=== PATIENT | female | born 1975 | race African-American/Black ===

== ENCOUNTER 2016-10-15 18:04 | Emergency (ER) | payer OTHER ==
[~2016-10-15] VITALS: Ht 162.6 cm; Wt 100.7 kg
--- NOTE | ~2016-10-15 | CR126 ---
[facility] A Service of [facility] & [facility] RADIOLOGY TEXT RESULTS PATIENT: RADHAMES ESPINOSA LOCATION: SED : 71 UNIT #: [id number] AGE: [address]: Eloisa Banks APRN SEX: F ORDER DR: [id number] [address] [address] [id number] E MR#: [id number] Acc #: [id number] NAME: RADHAMES ESPINOSA : 1975 SEX: F STUDY DATE/TIME: 10/15/2016 18:24 UNIT: SED ROOM: STUDY DESCRIPTION: CR Foot Complete Min 3 View Lt Attending Physician: Eloisa Banks A.P.R.N. Ordering Physician: Eloisa Carson A.P.R.N. Primary Care Physician: Primary Care Physician No MEDICAL IMAGING REPORT This report is preliminary unless electronic signature is present. EXAM Left foot 3 views 10/15/2016 HISTORY Left foot pain, rolled left foot and ankle today on sidewalk. FINDINGS Three views of the left foot demonstrate no fracture. There is hallux valgus and metatarsus varus. Mild degenerative narrowing of the first metatarsophalangeal joint. There is no soft tissue abnormality. IMPRESSION Hallux valgus and metatarsus varus. No evidence of fracture. Dictated by... Arthur Mcdonald M.D. THIS IS AN ELECTRONICALLY VERIFIED REPORT Arthur Mcdonald M.D. at 10/16/2016 7:19 AM KRT/psc TD: 10/16/2016 01:29 JOB #: [id number] MEDICAL IMAGING REPORT Page 1 of 1
--- NOTE | ~2016-10-15 | CR20 ---
[facility]. [facility] A Service of [facility] & [facility] RADIOLOGY TEXT RESULTS PATIENT: RADHAMES ESPINOSA LOCATION: SED : 71 UNIT #: [id number] AGE: [address]: Eloisa Banks APRN SEX: F ORDER DR: [id number] [address] [address] [id number] E MR#: [id number] Acc #: [id number] NAME: RADHAMES ESPINOSA : 1975 SEX: F STUDY DATE/TIME: 10/15/2016 18:24 UNIT: SED ROOM: STUDY DESCRIPTION: CR Ankle Min 3 Views Lt Attending Physician: Eloisa Banks A.P.R.N. Ordering Physician: Eloisa Carson A.P.R.N. Primary Care Physician: No Primary Care Physician MEDICAL IMAGING REPORT This report is preliminary unless electronic signature is present. EXAM Left ankle 3 views 10/15/2016 HISTORY Left ankle pain, rolled ankle today on sidewalk. FINDINGS AP, lateral, and oblique projections of the ankle show satisfactory integrity of the joint mortise with a smooth articular surface. There is no identifiable fracture, dislocation, or radiopaque foreign body. IMPRESSION Normal ankle. Dictated by... Arthur Mcdonald M.D. THIS IS AN ELECTRONICALLY VERIFIED REPORT Arthur Mcdonald M.D. at 10/16/2016 7:20 AM IZZY/jonelle TD: 10/16/2016 00:43 JOB #: [id number] MEDICAL IMAGING REPORT Page 1 of 1
[~2016-10-15 18:04] MED LIST: ALBUTEROL17 GM INH; ASPIRIN PO; BUTALBITAL PO; CAFFEINE PO; DICLOFENAC PO; EC-NAPROSYN500 MG PO; FLEXERIL PO; NO MEDICATIONS; OMNICEF300 M1 PO; SKELAXIN PO; ZOFRAN ODT4 MG PO
== END 2016-10-15 19:40 | disposition home or self-care (01) ==
LOC: SED 18:04
DX: S93.402A Sprain of unspecified ligament of left ankle, initial encounter (principal); S93.602A Unspecified sprain of left foot, initial encounter; I10 Essential (primary) hypertension; X50.0XXA Overexertion from strenuous movement or load, initial encounter; Y92.009 Unspecified place in unspecified non-institutional (private) residence as the place of occurrence of the external cause
CPT/HCPCS: 29515; 73610; 73630; 99283